=== PATIENT | male | born 1930 | race Caucasian/White ===

== ENCOUNTER 2016-12-03 04:54 | Emergency (ER) | payer OTHER ==
[2016-12-03] MEDS ORDERED: XYLOCAINE 1%/EPI 1:100,000 ONE (05:22)
[2016-12-03] MEDS ORDERED: ZOFRAN ODT PO ONE (05:41)
[2016-12-03] MEDS ORDERED: DILAUDID IM ONE (05:41)
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
[2016-12-03 07:05] LABS: ALBUMIN 3.9 g/dL (3.5-5.0); CALCIUM 8.9 mg/dL (8.8-10.2); POTASSIUM 4.2 mmol/L (3.5-5.1); TOTAL BILIRUBIN 0.58 mg/dL (0.20-1.00)
[2016-12-03 08:19] VITALS: BP 121/61
[2016-12-03 08:19] LABS: MANUAL DIFF NEEDED? NO
[2016-12-03 08:20] LABS: URINE CULTURE NEEDED? NO; URINE MICRO REVIEW NEEDED? NO; URINE SOURCE CLEAN CATCH
[2016-12-03 08:24] LABS: BILIRUBIN URINE NEGATIVE (NEGATIVE); BLOOD URINE NEGATIVE (NEGATIVE); COLOR YELLOW; GLUCOSE URINE NEGATIVE (NEGATIVE); LEUKOCYTES URINE NEGATIVE (NEGATIVE); NITRITE URINE NEGATIVE (NEGATIVE); PH URINE 5.5; PROTEIN URINE TRACE mg/dL (NEGATIVE); SP GRAVITY URINE 1.016; TURBIDITY URINE CLEAR (CLEAR); UROBILINOGEN URINE NORMAL (NORMAL)
--- NOTE | 2016-12-03 08:25 | Diag Imaging Result Document ---
PROCEDURE NAME: PELVIS - 12/03/2016 X-RAY PELVIS, 12/03/2016: COMPARISON: 03/07/2016. FINDINGS: The periprosthetic left proximal femur fracture has apparently healed. The prosthesis is intact. No acute fractures. There is diffuse osteopenia. IMPRESSION: No acute disease.
--- NOTE | 2016-12-03 08:26 | Diag Imaging Result Document ---
PROCEDURE NAME: HAND COMPLETE RIGHT - 12/03/2016 X-RAY RIGHT HAND 3 VIEWS, 12/03/2016: COMPARISON: None. FINDINGS: Bones are osteopenic. There is severe degeneration at the 1st carpometacarpal joint. There is also severe degeneration at the proximal interphalangeal joints of the ring finger. There is milder degeneration at the distal interphalangeal joints. No acute fractures. IMPRESSION: No acute disease.
[2016-12-03 08:27] LABS: BASO% 0.2 % (0.0-0.8); HEMATOCRIT 34.2 % (42.0-52.0); HEMOGLOBIN 11.1 g/dL (14.0-18.0); LYMPH# 0.49 X1000 (1.2-3.4); LYMPH% 9.6 % (20.5-51.1); MCH 30.5 PG (27-31); MCHC 32.5 g/dL (33-37); MONO# 0.48 X1000 (0.11-0.59); MONO% 9.4 % (1.7-9.3); MPV 10.3 FL (7.4-10.4); NEUT% 78.8 % (42.2-75.2); PLT 97 X1000 (130-400); RBC 3.64 XMIL (4.7-6.1)
[2016-12-03 08:27] LABS: UR EPITHELIAL CELLS <10 /HPF (<10); URINE BACTERIA NEGATIVE /HPF; URINE RBC <10 /HPF (<10); URINE WBC <10 /HPF (<10)
--- NOTE | 2016-12-03 08:33 | Diag Imaging Result Document ---
PROCEDURE NAME: CHEST-2 VIEWS - 12/03/2016 PORTABLE CHEST X-RAY, 12/03/2016: COMPARISON: 04/01/2016. FINDINGS: There is worsening cardiomegaly. There is new ill-defined infiltrate at the right lung base. IMPRESSION: Worsening cardiomegaly. New infiltrate at the right lung base.
--- NOTE | 2016-12-03 09:06 | ED EKG INTERP ---
EKG Interpretation - EKG Time of EKG reading by physician:: 06:43 EKG Read and Signed by:: Asher Pena EKG Interpretation (*Must complete 3 of following elements*): Abnormal Rate: 74 Rhythm: A-fib with PVCs [place]: left QRS: LBB ST Wave: normal Attestation - Scribe Verification/Attestation Scribe:: Malick Zarate Acting as Scribe for:: Asher Pena Scribe documention review:: This chart was documented by a scribe and accurately reflects the service the provider performed and the decisions made by the provider. Physician Attestation - Physician Attestation I, the provider, attest to the following statement:: Asher Pena Physician documentation Attestation:: This documentation recorded by the scribe accurately reflects the service I personally performed and the decisions made by me.
--- NOTE | 2016-12-03 09:08 | EKG Report ---
Test Performed on : 12/03/2016 06:43:01 AM Test Reason : AMS Blood Pressure : / mmHG Vent. Rate : 074 BPM Atrial Rate : 081 BPM P-R Int : 000 ms QRS Dur : 156 ms QT Int : 456 ms P-R-T Axes : 000 -33 112 degrees QTc Int : 506 ms Atrial fibrillation. with premature ventricular or aberrantly conducted complexes. Left axis deviation Left bundle branch block Abnormal ECG When compared with ECG of 01-APR-2016 01:50, T wave inversion no longer evident in Inferior leads Unconfirmed Result
--- NOTE | 2016-12-03 11:59 | Diag Imaging Result Document ---
PROCEDURE NAME: HEAD/C-SPINE W/O CONTRAST - 12/03/2016 CT HEAD AND C-SPINE WITHOUT CONTRAST: COMPARISON: CT head dated 03/14/[address] head and C-spine dated 03/06/2016. FINDINGS: Head: There is extensive patchy low attenuation in the periventricular and subcortical white matter suggesting microangiopathy, stable. There is no evidence of acute infarct given the limited sensitivity of CT versus MRI. There is stable brain atrophy. 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 This is stable. There is no discrete intracranial mass, mass effect, or intracranial hemorrhage. There is a small soft tissue hematoma involving the frontal scalp to the right of midline superiorly. The calvaria is intact. C-SPINE: There is fairly extensive multilevel degenerative disk disease and facet arthropathy similar to the previous study. There is loss of disk space height at essentially every level except for C2-3. Small marginal osteophytes are seen at virtually every cervical level. This degenerative change is causing some degree of central canal and neural foraminal narrowing at several levels, most significant at C5-6 where there is at least moderate central canal narrowing. However, these findings are essentially stable. There is no evidence of fracture, traumatic subluxation, or intrinsic osseous lesion, otherwise. IMPRESSION: 1. Stable chronic intracranial changes, but no evidence of acute intracranial pathology. 2. Right frontal scalp hematoma. 3. Extensive degenerative change throughout the cervical spine similar to the previous study. No evidence of fracture or other definite acute C-spine injury.
== END 2016-12-03 09:07 | disposition home or self-care (01) ==
LOC: ED 04:54
DX: S01.01XA Laceration without foreign body of scalp, initial encounter (principal); S61.411A Laceration without foreign body of right hand, initial encounter; S60.221A Contusion of right hand, initial encounter; J18.9 Pneumonia, unspecified organism; S00.03XA Contusion of scalp, initial encounter; R94.31 Abnormal electrocardiogram [ECG] [EKG]; R26.2 Difficulty in walking, not elsewhere classified; R22.0 Localized swelling, mass and lump, head; Z79.899 Other long term (current) drug therapy; R51 Headache; M79.644 Pain in right finger(s); M47.9 Spondylosis, unspecified; I25.10 Atherosclerotic heart disease of native coronary artery without angina pectoris; I50.9 Heart failure, unspecified; I10 Essential (primary) hypertension; M19.90 Unspecified osteoarthritis, unspecified site; F41.9 Anxiety disorder, unspecified; W18.30XA Fall on same level, unspecified, initial encounter; W22.8XXA Striking against or struck by other objects, initial encounter
CPT/HCPCS: 70450; 71020; 72125; 72170; 80053; 81001; 82948; 85025; 93005; J1170